=== PATIENT | male | born 1935 | race Caucasian/White ===

== ENCOUNTER 2019-08-11 19:55 | Inpatient (IN) | payer MEDICARE, MEDICAID ==
[2019-08-11 20:31] VITALS: BP 143/73
[2019-08-12] MEDS ORDERED: Magnesium Hydroxide (MOM) 30 mL UDC PO PRN (01:44)
[2019-08-12] MEDS ORDERED: Multivitamin Tab PO SCH (09:00)
--- NOTE | 2019-08-12 12:21 | Psychiatric Evaluation ---
DATE OF SERVICE: 08/12/2019 JUSTIFICATION FOR HOSPITALIZATION: Agitation, irritated, striking out at staff. HISTORY OF PRESENT ILLNESS: An 83-year-old male apparently aggressive, agitated, banging on tables, poor sleep, irritated, striking out at nursing staff, essentially refusing to speak with me this morning, but per staff, he has been yelling and throwing himself off his chair, throwing his feces around the facility. PAST PSYCHIATRIC HISTORY: Unclear. Noted dementia. FAMILY HISTORY: Unclear. SOCIAL HISTORY: Apparently, the patient told staff he is from [facility], I am not sure. Per the facesheet, it looks like he is coming from a retirement in [place]. and daughter listed on the facesheet, involvement unclear. MEDICAL HISTORY: Noted. MEDICATIONS: Noted. MENTAL STATUS EXAMINATION: Stated age, sleeping, arousable, refusing to speak with me. Unable to assess further. Concerns for impulse control, agitation. DIAGNOSES: Dementia, dementia with behaviors; mood, unspecified; anxiety, unspecified; psychosis, unspecified. MEDICAL: Please see full H and P. ESTIMATED LENGTH OF STAY: 7-10 days. ASSESSMENT: The patient requiring hospitalization, aggressive, agitated, striking out, worsening behaviors, unruly. Nursing staff concerned about their own safety. The patient apparently also trying to throw himself off the chair, throwing feces, which is documented. PLAN: Treatment plan includes group as well as milieu therapy. We will make appropriate medication adjustments. CONDITIONS FOR DISCHARGE: Improved mood, improved affect, better control of any aggressive symptom. JOB# [id number]
--- NOTE | 2019-08-12 19:38 | Consultation ---
DATE OF CONSULTATION:08/12/19 INTERNAL MEDICINE CONSULTATION HISTORY OF PRESENT ILLNESS: We have 83-year-old male with dementia and Parkinson who is transferred from long-term for agitation. The patient was combative. The patient was throwing his feces at people. The patient was screaming and yelling. At this time, the patient was confused. The patient was cleared at [facility]. PAST MEDICAL HISTORY: 1. Parkinson. 2. Hypertension. 3. Dementia. MEDICATIONS: List reviewed. ALLERGIES: None. SOCIAL HISTORY: Unobtainable. REVIEW OF SYSTEMS: Difficult to obtain. PHYSICAL EXAMINATION: VITAL SIGNS: Temperature is 98.0, pulse 91, respirations 20, blood pressure 109/59, satting 98%. HEENT: Normocephalic, atraumatic head exam. NECK: Supple. CARDIOVASCULAR: Regular rate and rhythm. LUNGS: Decreased breath sounds. ABDOMEN: Soft, nontender. EXTREMITIES: No edema, cyanosis or clubbing. ASSESSMENT AND PLAN: 1. End-stage dementia with behavioral manifestations. 2. Parkinson. 3. Anxiety. 4. Acute psychosis. The patient will continue with supportive care. I reviewed the medical records from the long-term. I have discussed the care plan with nursing staff. JOB# [id number] JANEE
== END 2019-08-12 18:55 | disposition short-term general hospital (02) | DRG 884 ==
LOC: GERO 19:55
PROVIDERS: ADMIT Psychiatry & Neurology Psychiatry; ATTEND Psychiatry & Neurology Psychiatry
DX: F03.91 Unspecified dementia, unspecified severity, with behavioral disturbance (principal); F41.9 Anxiety disorder, unspecified; F29 Unspecified psychosis not due to a substance or known physiological condition; I10 Essential (primary) hypertension; G20 Parkinson's disease; Z79.899 Other long term (current) drug therapy
CPT/HCPCS: 83036-90; J7051; Z7610

== ENCOUNTER 2019-08-16 16:45 | Inpatient (IN) | payer MEDICARE, MEDICAID ==
[2019-08-16] MEDS ORDERED: Magnesium Hydroxide (MOM) 30 mL UDC PO PRN (19:33)
[2019-08-16] MEDS ORDERED: Acetaminophen 500 MG TAB PO PRN (19:33)
[2019-08-16] MEDS ORDERED: Maalox 30 mL Cup PO PRN (19:33)
[2019-08-16] MEDS: Carbidopa/Levodopa 10/100 mg Tab PO SCH (21:08)
[2019-08-17 02:36] VITALS: BP 108/62
[2019-08-17] MEDS: Carbidopa/Levodopa 10/100 mg Tab PO SCH ×3 (09:20→20:45)
[2019-08-17] MEDS: Multivitamin Tab PO SCH (09:20)
--- NOTE | 2019-08-17 12:26 | Consultation ---
DATE OF CONSULTATION: 08/17/2019 INTERNAL MEDICINE CONSULTATION HISTORY OF PRESENT ILLNESS: We have an 83-year-old male with dementia with psychosis who is transferred from [facility]. The patient was sent there to rule out for COVID-19. The patient's COVID negative x 2. The patient was transferred here for continuing care of pneumonia. No chest pain or shortness of breath. No nausea, vomiting, or abdominal pain. PAST MEDICAL HISTORY: 1. Dementia with psychosis. 2. Hypertension. MEDICATIONS: List reviewed. ALLERGIES: None. PHYSICAL EXAMINATION: VITAL SIGNS: Temperature 98.1, pulse 79, respirations 20, blood pressure 93/59, satting 96% on room air. HEENT: Normocephalic, atraumatic head exam. NECK: Supple. CARDIOVASCULAR: Regular rate and rhythm. LUNGS: Decreased breath sounds. ABDOMEN: Soft, nontender. EXTREMITIES: No edema, cyanosis or clubbing. ASSESSMENT AND PLAN: 1. Community-acquired pneumonia. 2. Dementia with psychosis. The patient will be continued on Levaquin 500 mg p.o. daily. The patient will get breathing treatments q. 6 hours. The patient's pulse ox will be monitored. We will co-manage with the psychiatrist. JOB# [id number]
[2019-08-17] MEDS: Albuterol/Ipratropium Neb 3 ML AERS HHN SCH ×2 (15:19→19:00)
--- NOTE | 2019-08-17 17:27 | Psychiatric Evaluation ---
DATE OF SERVICE: 08/17/2019 JUSTIFICATION FOR HOSPITALIZATION: Originally agitation and irritation, irritated striking out at staff. HISTORY OF PRESENT ILLNESS: An 83-year-old male came to this hospital, was sent to [place] for medical decompensation, now readmitted was apparently banging on tables, poor sleep, irritated, striking out at nursing staff. When I go see him, I am not able to get much information from him. He is refusing to talk to me, just stares at me, does not say anything. The patient noted to be continuously getting out of bed, unsteady gait, notable confusion and having hard time controlling his behaviors. He is not listening to any staff. PAST PSYCHIATRIC HISTORY: Recent admission here. FAMILY HISTORY: Noncontributory. SOCIAL HISTORY: Very hard to assess, not talking. The patient told staff he is from [facility] coming in from a [facility]. MEDICAL HISTORY: Noted. MEDICATIONS: Noted. MENTAL STATUS EXAMINATION: Stated age. Sleeping opens his eyes, does not talk to me at all. Concerns for impulse control, agitation, restlessness, confusional state. DIAGNOSES: Dementia, dementia with behaviors; mood, unspecified; anxiety, unspecified; psychosis, unspecified. MEDICAL: Please see full H and P. ESTIMATED LENGTH OF STAY: 7-10 days. ASSESSMENT: The patient requiring hospitalization. Aggressive behaviors, agitation, striking out. Poorly oriented, trying to get up, throwing himself off the chair. At some point, throwing feces, which was documented when he was here originally a few days prior. PLAN: Treatment plan includes group as well as milieu therapy. We will make appropriate medication adjustments, monitor for any overt side effects. JOB# [id number]
[2019-08-18] MEDS: Albuterol/Ipratropium Neb 3 ML AERS HHN SCH ×3 (08:08→18:58)
[2019-08-18] MEDS: Carbidopa/Levodopa 10/100 mg Tab PO SCH ×3 (09:09→20:23)
[2019-08-18] MEDS: Multivitamin Tab PO SCH (09:09)
--- NOTE | 2019-08-18 13:40 | Internal Medicine Prog Note ---
Internal Medicine Subjective - Subjective Service Date: 08/18/19 Patient seen and examined:: without staff Patient is:: asleep Internal Medicine Objective - Results Recent Labs: Laboratory Last Values POC Glucose 145 MG/DL (70 - 105) H 08/16/19 20:25 - Physical Exam Vitals and I&O: Vital Signs Temp 98.2 F 08/18/19 06:26 Pulse 77 08/18/19 09:09 Resp 18 08/18/19 06:26 BP 111/67 08/18/19 09:09 Pulse Ox 98 08/18/19 06:26 Intake & Output 08/17/19 08/18/19 08/18/19 18:59 06:59 18:59 Intake Total 900 Balance 900 Intake: Oral 900 Other: # Voids 3 # Bowel Movements 0 Stool Characteristics Soft Formed Brown Active Medications: Current Medications Acetaminophen (Tylenol) 650 mg PO Q4H PRN PRN Reason: Pain (Mild 1-3) Stop: 10/15/19 19:32 Acetaminophen (Tylenol Extra Strength) 1,000 mg PO Q6H PRN PRN Reason: Pain (Moderate 4-6) Stop: 10/15/19 19:32 Al Hydrox/Mg Hydrox/Simethicone (Maalox) 30 ml PO Q4HR PRN PRN Reason: GI DISTRESS Stop: 10/15/19 19:32 Albuterol/Ipratropium (Duoneb Neb) 3 ml HHN [id number] [facility] Stop: 10/16/19 12:59 Last Admin: 08/18/19 08:08 Dose: Not Given Bisacodyl (Dulcolax 10 Mg Supp) 10 mg RC DAILY PRN PRN Reason: constipation Stop: 10/16/19 11:23 Carbidopa/Levodopa (Sinemet 10 Mg-100 Mg) 1 tab PO TID [facility] Stop: 10/15/19 20:59 Last Admin: 08/18/19 09:09 Dose: 1 tab Donepezil HCl (Aricept) 5 mg PO DAILY [facility] Stop: 10/16/19 08:59 Last Admin: 08/18/19 09:08 Dose: 5 mg Ibuprofen (Motrin) 400 mg PO Q4H PRN PRN Reason: Pain (Severe 7-10) Stop: 10/15/19 19:32 Levofloxacin (Levaquin) 500 mg PO DAILY [facility] Stop: 10/16/19 08:59 Last Admin: 08/18/19 09:08 Dose: 500 mg Magnesium Hydroxide (Milk Of Magnesia) 30 ml PO HS PRN PRN Reason: Constipation Multivitamins/Vitamin C (Theragran) 1 tab PO DAILY REE Stop: 10/16/19 08:59 Last Admin: 08/18/19 09:09 Dose: 1 tab Propranolol HCl (Inderal) 10 mg PO BID [facility]EE Stop: 10/16/19 08:59 Last Admin: 08/18/19 09:09 Dose: 10 mg Zolpidem Tartrate (Ambien) 5 mg PO HS PRN PRN Reason: Insomnia Stop: 10/15/19 19:32 General: demented HEENT: NC/AT Neck: Supple Lungs: CTAB Cardiovascular: RRR, Normal S1, Normal S2 Abdomen: soft, non-tender Extremities: clear Internal Medicine Assmt/Plan - Assessment Assessment: 1. Community-acquired pneumonia 2. HTN 3. Dementia with psychosis - Plan Plan: continue supportive care. continue levaquin 500 mg daily patient does not appear to be in respiratory distress Nutritional Asmnt/Malnutr-PDOC - Dietary Evaluation Malnutrition Findings (Please click <Entered> for more info): Nutritional Asmnt/Malnutrition Start: 08/17/19 13: 10 Text: Status: Complete Freq: Protocol: Document 08/17/19 13:10 CANDI (Rec: 08/17/19 13:15 [email or web address] [id number]) Nutritional Asmnt/Malnutrition Patient General Information Nutritional Screening High Risk Diagnosis Dementia with psychosis Pertinent Medical Hx/Surgical Hx Dementia with psychosis, HTN Subjective Information Pt is a 83-year-old male re- admitted on 08/15 d/t psychosis after being sent to [facility] to r/o COVID-19. Pt ate 50% dinner and snacks on per Meal/Nutrition Activity Record. Recommend adding fish oil to diet regimen d/t dry skin and low BMI. Spoke with pt nurse Doug today pertaining to recommendation. Let nurse know we can get pt higher calorie snacks in the kitchen and provide softer food choices as the chopped burger seemed to be too tough for pt. Provided nurse with food options to discuss with pt at snack and meal time. Anthropometrics HT: 511 WT: 111 LB (50.45 kg) BMI: 15.50 (Underweight) GI/ Skin Integrity GI: WNL, Soft, Flat, Non- tender BM: 5/2 x1 I/O: 300/1 (+299) Skin: WNL, Intact, Dryness Dejan: 16 Diet Order: Mechanical Soft Estimated Energy Needs: ( Underweight, CBW) 2019-7641 kcals (30-35 kcals/ kg) 60-65g Pro (1.2-1.3 g/kg) 1223-8685 ml (30-25 ml/kg) Current Diet Order/ Nutrition Support Mechanical Soft Pertinent Medications Maalox (PRN), Albuterol (PRN), Dulcolax (PRN), MOM (PRN), Theragran Pertinent Labs POC Glucose (last 24 hours): 145 Nutritional Hx/Data Height 1.8 m Height (Calculated Centimeters) 180.3 Current Weight (lbs) 50.349 kg Weight (Calculated Kilograms) 50.3 Weight (Calculated Grams) 73237.8 Wayan Body Weight 172 LB (78.18 kg) % Wayan Body Weight 65 Body Mass Index (BMI) 15.5 Weight Status Emaciated GI Symptoms Last BM 52 x1 Skin Integrity/Comment: Skin: WNL, Intact, Dryness Dejan: 16 Current %PO Fair (50-74%) Estimated Nutritional Goals BEE in Kcals: Using Current wt Calories/Kcals/Kg 30-35 Kcals Calculated 7796-1401 Protein: Using Current wt Protein g/k.2-1.3 Protein Calculated 60-65 Fluid: ml 2260-1877 ml (30-25 ml/kg) Nutritional Problem 1. Problem Problem Underweight Etiology r/t consistent energy underconsumption Signs/Symptoms: aeb BMI >18.5 (15.5). Malnutrition Related to Morbid Obesity Malnutrition related to morbid obesity No Intervention/Recommendation Comments 1. Continue Mechanical Soft diet as tolerated. 2. Add Ensure Enlive TID ( completed). 3. Recommend adding fish oil to medication regimen. Expected Outcomes/Goals Expected Outcomes/Goals 1. PO intake to meet >75% of estimated nutritional needs. 2. Gradual weight gain (1.0 LB /week) trending toward IBW preferred. 3. Weekly weight checks. 4. Monitor PO intake, wt, nutrition related labs, and skin integrity. 5. F/U as high risk in 2-3 days, 5/5-5/6.
--- NOTE | 2019-08-18 19:42 | Progress Notes ---
DATE: 08/18/2019 SUBJECTIVE: An 83-year-old male, currently in the hospital, dementia, confusion. When I approached him, he asked in a language he speaks, he says he can speak Albanian, but he does not really answering any of my questions whatsoever, just asks for water. Ongoing disorientation. It seems he has a history of dementia. He has been generally calmer and not exhibiting any behavioral problems, no agitation, no escalation. Mostly withdrawn, keeps to self, fair sleep and appetite. Medications were reviewed. Labs were reviewed. Vitals were reviewed. No overt side effects. MENTAL STATUS EXAMINATION: Stated age, calm, awake, alert, but confused, somewhat impulsive, but not creating any sort of disturbance. Poor orientation. DIAGNOSIS: Dementia. PLAN: We will continue inpatient monitoring. We will attempt to contact family and it seems that the patient may be approaching his baseline, it is unclear. We will monitor for any impulse control issues or changes in mental status. [facility]# [id number]
[2019-08-19] MEDS: Albuterol/Ipratropium Neb 3 ML AERS HHN SCH ×3 (06:50→18:34)
[2019-08-19] MEDS: Multivitamin Tab PO SCH (09:31)
[2019-08-19] MEDS: Carbidopa/Levodopa 10/100 mg Tab PO SCH ×3 (09:32→20:57)
--- NOTE | 2019-08-19 12:08 | Progress Notes ---
DATE: 08/19/2019 SUBJECTIVE: The patient is currently in the hospital, calm, generally cooperative. Currently on dosing of Aricept, seems to be tolerating this medication fairly well. Calm on exam. Limited [id number] because he is pretty demented, confused. I tried to spend some time with him getting information, but it was challenging, not really able to have any intelligible conversation with him. Noted history of dementia. Staff noting calm. I spent some time with staff. The patient seems to be mostly withdrawn, keeps to self. Family involved. Medications were reviewed. Labs were reviewed. Vitals were reviewed. Blood pressure 101/52, pulse of 95. MENTAL STATUS EXAMINATION: Calm, generally cooperative, sleeping, arousable. Mood "okay." Able to make some basic needs known. No SI, no HI. No outbursts. DIAGNOSIS: Dementia. Dementia with behaviors. PLAN: We will attempt to reach out to family. Treatment plan includes group as well as milieu therapy. We will make appropriate medication adjustments. Also pending possible placement. JOB# [id number]
--- NOTE | 2019-08-19 15:40 | Internal Medicine Prog Note ---
Internal Medicine Subjective - Subjective Service Date: 08/19/19 Patient seen and examined:: without staff Patient is:: asleep Internal Medicine Objective - Results Recent Labs: Laboratory Last Values POC Glucose 145 MG/DL (70 - 105) H 08/16/19 20:25 - Physical Exam Vitals and I&O: Vital Signs Temp 98.0 F 08/19/19 14:00 Pulse 69 08/19/19 14:00 Resp 20 08/19/19 14:00 BP 102/58 08/19/19 14:00 Pulse Ox 95 08/19/19 14:00 Intake & Output 08/18/19 08/19/19 08/19/19 18:59 06:59 18:59 Intake Total 960 360 Output Total 1 Balance 960 359 Intake: Oral 960 360 Output: Urine/Stool Mix 1 Other: # Voids 3 2 # Bowel Movements 0 0 Stool Characteristics Soft Soft Soft Formed Formed Formed Brown Brown Brown Active Medications: Current Medications Acetaminophen (Tylenol) 650 mg PO Q4H PRN PRN Reason: Pain (Mild 1-3) Stop: 10/15/19 19:32 Acetaminophen (Tylenol Extra Strength) 1,000 mg PO Q6H PRN PRN Reason: Pain (Moderate 4-6) Stop: 10/15/19 19:32 Al Hydrox/Mg Hydrox/Simethicone (Maalox) 30 ml PO Q4HR PRN PRN Reason: GI DISTRESS Stop: 10/15/19 19:32 Albuterol/Ipratropium (Duoneb Neb) 3 ml HHN [id number] [facility] Stop: 10/16/19 12:59 Last Admin: 08/19/19 12:36 Dose: Not Given Bisacodyl (Dulcolax 10 Mg Supp) 10 mg RC DAILY PRN PRN Reason: constipation Stop: 10/16/19 11:23 Carbidopa/Levodopa (Sinemet 10 Mg-100 Mg) 1 tab PO TID [facility] Stop: 10/15/19 20:59 Last Admin: 08/19/19 14:47 Dose: 1 tab Donepezil HCl (Aricept) 5 mg PO DAILY [facility] Stop: 10/16/19 08:59 Last Admin: 08/19/19 09:31 Dose: 5 mg Ibuprofen (Motrin) 400 mg PO Q4H PRN PRN Reason: Pain (Severe 7-10) Stop: 10/15/19 19:32 Levofloxacin (Levaquin) 500 mg PO DAILY [facility] Stop: 10/16/19 08:59 Last Admin: 08/19/19 09:31 Dose: 500 mg Magnesium Hydroxide (Milk Of Magnesia) 30 ml PO HS PRN PRN Reason: Constipation Multivitamins/Vitamin C (Theragran) 1 tab PO DAILY [facility] Stop: 10/16/19 08:59 Last Admin: 08/19/19 09:31 Dose: 1 tab Propranolol HCl (Inderal) 10 mg PO BID [facility] Stop: 10/16/19 08:59 Last Admin: 08/19/19 09:31 Dose: 10 mg Zolpidem Tartrate (Ambien) 5 mg PO HS PRN PRN Reason: Insomnia Stop: 10/15/19 19:32 General: demented HEENT: NC/AT Neck: Supple Lungs: CTAB Cardiovascular: RRR, Normal S1, Normal S2 Abdomen: soft, non-tender Extremities: clear Internal Medicine Assmt/Plan - Assessment Assessment: 1. Community-acquired pneumonia 2. HTN 3. Dementia with psychosis - Plan Plan: continue supportive care. continue levaquin 500 mg daily d.w r.n. Nutritional Asmnt/Malnutr-PDOC - Dietary Evaluation Malnutrition Findings (Please click <Entered> for more info): Nutritional Asmnt/Malnutrition Start: 08/17/19 13: 10 Text: Status: Complete Freq: Protocol: Document 08/17/19 13:10 CANDI (Rec: 08/17/19 13:15 CANDI [email or web address] [id number]) Nutritional Asmnt/Malnutrition Patient General Information Nutritional Screening High Risk Diagnosis Dementia with psychosis Pertinent Medical Hx/Surgical Hx Dementia with psychosis, HTN Subjective Information Pt is a 83-year-old male re- admitted on 08/15 d/t psychosis after being sent to [facility] to r/o COVID-19. Pt ate 50% dinner and snacks on per Meal/Nutrition Activity Record. Recommend adding fish oil to diet regimen d/t dry skin and low BMI. Spoke with pt nurse Doug today pertaining to recommendation. Let nurse know we can get pt higher calorie snacks in the kitchen and provide softer food choices as the chopped burger seemed to be too tough for pt. Provided nurse with food options to discuss with pt at snack and meal time. Anthropometrics HT: 511 WT: 111 LB (50.45 kg) BMI: 15.50 (Underweight) GI/ Skin Integrity GI: WNL, Soft, Flat, Non- tender BM: 5/2 x1 I/O: 300/1 (+299) Skin: WNL, Intact, Dryness Dejan: 16 Diet Order: Mechanical Soft Estimated Energy Needs: ( Underweight, CBW) 8828-2446 kcals (30-35 kcals/ kg) 60-65g Pro (1.2-1.3 g/kg) 4454-9821 ml (30-25 ml/kg) Current Diet Order/ Nutrition Support Mechanical Soft Pertinent Medications Maalox (PRN), Albuterol (PRN), Dulcolax (PRN), MOM (PRN), Theragran Pertinent Labs POC Glucose (last 24 hours): 145 Nutritional Hx/Data Height 1.8 m Height (Calculated Centimeters) 180.3 Current Weight (lbs) 50.349 kg Weight (Calculated Kilograms) 50.3 Weight (Calculated Grams) 15724.8 Isabella Body Weight 172 LB (78.18 kg) % Isabella Body Weight 65 Body Mass Index (BMI) 15.5 Weight Status Emaciated GI Symptoms Last BM 5/2 x1 Skin Integrity/Comment: Skin: WNL, Intact, Dryness Dejan: 16 Current %PO Fair (50-74%) Estimated Nutritional Goals BEE in Kcals: Using Current wt Calories/Kcals/Kg 30-35 Kcals Calculated 6715-4923 Protein: Using Current wt Protein g/k.2-1.3 Protein Calculated 60-65 Fluid: ml 1187-9270 ml (30-25 ml/kg) Nutritional Problem 1. Problem Problem Underweight Etiology r/t consistent energy underconsumption Signs/Symptoms: aeb BMI >18.5 (15.5). Malnutrition Related to Morbid Obesity Malnutrition related to morbid obesity No Intervention/Recommendation Comments 1. Continue Mechanical Soft diet as tolerated. 2. Add Ensure Enlive TID ( completed). 3. Recommend adding fish oil to medication regimen. Expected Outcomes/Goals Expected Outcomes/Goals 1. PO intake to meet >75% of estimated nutritional needs. 2. Gradual weight gain (1.0 LB /week) trending toward IBW preferred. 3. Weekly weight checks. 4. Monitor PO intake, wt, nutrition related labs, and skin integrity. 5. F/U as high risk in 2-3 days, 08/18-08/19.
[2019-08-20] MEDS: Albuterol/Ipratropium Neb 3 ML AERS HHN SCH ×2 (06:40→13:30)
[2019-08-20] MEDS: Multivitamin Tab PO SCH (09:01)
[2019-08-20] MEDS: Carbidopa/Levodopa 10/100 mg Tab PO SCH ×3 (09:02→21:41)
--- NOTE | 2019-08-20 13:32 | Progress Notes ---
DATE: 08/20/2019 SUBJECTIVE: An 83-year-old male, I contacted the son yesterday with a voice message. The patient is calm, generally cooperative. Apparently, the longterm did not want him back, but he has got no days. Family wants him to go back to the longterm, going to [facility]. It is likely he will have to go back there. Family wants him to go back to his longterm. The patient mostly withdrawn, keeps to self, confused, hard to assess. MENTAL STATUS EXAMINATION: Stated age, sleeping, arousable. No agitation per staff, no behavioral disturbances, just sleeping a lot, trying to get him back to the [facility]. Currently, also pending family to call me back. PLAN: We will continue to monitor ongoing poor orientation, but generally. DICTATION ENDS HERE JOB# [id number]
--- NOTE | 2019-08-20 14:16 | Internal Medicine Prog Note ---
Internal Medicine Subjective - Subjective Service Date: 08/20/19 Patient is:: asleep Per staff patient has:: no adverse event, no episodes of fall Internal Medicine Objective - Results Recent Labs: Laboratory Last Values POC Glucose 145 MG/DL (70 - 105) H 08/16/19 20:25 - Physical Exam Vitals and I&O: Vital Signs Temp 97.6 F 08/20/19 06:22 Pulse 112 08/20/19 09:01 Resp 18 08/20/19 06:22 BP 114/78 08/20/19 09:01 Pulse Ox 99 08/20/19 06:22 Intake & Output 08/19/19 08/20/19 08/20/19 18:59 06:59 18:59 Intake Total 880 120 Balance 880 120 Intake: Oral 640 120 Other 240 Other: # Voids 3 3 # Bowel Movements 0 0 Stool Characteristics Soft Soft Formed Formed Brown Brown Active Medications: Current Medications Acetaminophen (Tylenol) 650 mg PO Q4H PRN PRN Reason: Pain (Mild 1-3) Stop: 10/15/19 19:32 Acetaminophen (Tylenol Extra Strength) 1,000 mg PO Q6H PRN PRN Reason: Pain (Moderate 4-6) Stop: 10/15/19 19:32 Al Hydrox/Mg Hydrox/Simethicone (Maalox) 30 ml PO Q4HR PRN PRN Reason: GI DISTRESS Stop: 10/15/19 19:32 Albuterol/Ipratropium (Duoneb Neb) 3 ml HHN [id number] [facility] Stop: 10/16/19 12:59 Last Admin: 08/20/19 06:40 Dose: Not Given Bisacodyl (Dulcolax 10 Mg Supp) 10 mg RC DAILY PRN PRN Reason: constipation Stop: 10/16/19 11:23 Carbidopa/Levodopa (Sinemet 10 Mg-100 Mg) 1 tab PO TID [facility] Stop: 10/15/19 20:59 Last Admin: 08/20/19 14:08 Dose: 1 tab Donepezil HCl (Aricept) 5 mg PO DAILY [facility] Stop: 10/16/19 08:59 Last Admin: 08/20/19 09:00 Dose: 5 mg Fish Oil ([place] 3) 1,000 mg PO DAILY [facility] Stop: 10/20/19 08:59 Ibuprofen (Motrin) 400 mg PO Q4H PRN PRN Reason: Pain (Severe 7-10) Stop: 10/15/19 19:32 Levofloxacin (Levaquin) 500 mg PO DAILY [facility] Stop: 10/16/19 08:59 Last Admin: 08/20/19 09:01 Dose: 500 mg Magnesium Hydroxide (Milk Of Magnesia) 30 ml PO HS PRN PRN Reason: Constipation Multivitamins/Vitamin C (Theragran) 1 tab PO DAILY [facility] Stop: 10/16/19 08:59 Last Admin: 08/20/19 09:01 Dose: 1 tab Propranolol HCl (Inderal) 10 mg PO BID [facility] Stop: 10/16/19 08:59 Last Admin: 08/20/19 09:01 Dose: 10 mg Zolpidem Tartrate (Ambien) 5 mg PO HS PRN PRN Reason: Insomnia Stop: 10/15/19 19:32 General: demented HEENT: NC/AT Neck: Supple Lungs: CTAB Cardiovascular: RRR, Normal S1, Normal S2 Abdomen: soft, non-tender Extremities: clear Internal Medicine Assmt/Plan - Assessment Assessment: 1. Community-acquired pneumonia 2. HTN 3. Dementia with psychosis - Plan Plan: continue supportive care. continue levaquin 500 mg po daily for pneumonia monitoring for respiratory distress d/w r.n. Nutritional Asmnt/Malnutr-PDOC - Dietary Evaluation Malnutrition Findings (Please click <Entered> for more info): Nutritional Asmnt/Malnutrition Start: 08/17/19 13: 10 Text: Status: Complete Freq: Protocol: Document 08/17/19 13:10 CANDI (Rec: 08/17/19 13:15 CANDI [id number]) Nutritional Asmnt/Malnutrition Patient General Information Nutritional Screening High Risk Diagnosis Dementia with psychosis Pertinent Medical Hx/Surgical Hx Dementia with psychosis, HTN Subjective Information Pt is a 83-year-old male re- admitted on 08/15 d/t psychosis after being sent to [facility] to r/o COVID-19. Pt ate 50% dinner and snacks on per Meal/Nutrition Activity Record. Recommend adding fish oil to diet regimen d/t dry skin and low BMI. Spoke with pt nurse Doug today pertaining to recommendation. Let nurse know we can get pt higher calorie snacks in the kitchen and provide softer food choices as the chopped burger seemed to be too tough for pt. Provided nurse with food options to discuss with pt at snack and meal time. Anthropometrics HT: 511 WT: 111 LB (50.45 kg) BMI: 15.50 (Underweight) GI/ Skin Integrity GI: WNL, Soft, Flat, Non- tender BM: 5/2 x1 I/O: 300/1 (+299) Skin: WNL, Intact, Dryness Dejan: 16 Diet Order: Mechanical Soft Estimated Energy Needs: ( Underweight, CBW) 6102-8046 kcals (30-35 kcals/ kg) 60-65g Pro (1.2-1.3 g/kg) 7310-3137 ml (30-25 ml/kg) Current Diet Order/ Nutrition Support Mechanical Soft Pertinent Medications Maalox (PRN), Albuterol (PRN), Dulcolax (PRN), MOM (PRN), Theragran Pertinent Labs POC Glucose (last 24 hours): 145 Nutritional Hx/Data Height 1.8 m Height (Calculated Centimeters) 180.3 Current Weight (lbs) 50.349 kg Weight (Calculated Kilograms) 50.3 Weight (Calculated Grams) 93635.8 [place] Body Weight 172 LB (78.18 kg) % [place] Body Weight 65 Body Mass Index (BMI) 15.5 Weight Status Emaciated GI Symptoms Last BM 5/2 x1 Skin Integrity/Comment: Skin: WNL, Intact, Dryness Dejan: 16 Current %PO Fair (50-74%) Estimated Nutritional Goals BEE in Kcals: Using Current wt Calories/Kcals/Kg 30-35 Kcals Calculated 0606-0174 Protein: Using Current wt Protein g/k.2-1.3 Protein Calculated 60-65 Fluid: ml 9300-9331 ml (30-25 ml/kg) Nutritional Problem 1. Problem Problem Underweight Etiology r/t consistent energy underconsumption Signs/Symptoms: aeb BMI >18.5 (15.5). Malnutrition Related to Morbid Obesity Malnutrition related to morbid obesity No Intervention/Recommendation Comments 1. Continue Mechanical Soft diet as tolerated. 2. Add Ensure Enlive TID ( completed). 3. Recommend adding fish oil to medication regimen. Expected Outcomes/Goals Expected Outcomes/Goals 1. PO intake to meet >75% of estimated nutritional needs. 2. Gradual weight gain (1.0 LB /week) trending toward IBW preferred. 3. Weekly weight checks. 4. Monitor PO intake, wt, nutrition related labs, and skin integrity. 5. F/U as high risk in 2-3 days, 08/18-08/19.
[2019-08-21] MEDS: Albuterol/Ipratropium Neb 3 ML AERS HHN SCH ×3 (06:45→18:45)
[2019-08-21] MEDS: Carbidopa/Levodopa 10/100 mg Tab PO SCH ×3 (08:48→21:30)
[2019-08-21] MEDS: Multivitamin Tab PO SCH (08:48)
[2019-08-21] MEDS: Fish Oil 1,000 MG SGL PO SCH (08:49)
--- NOTE | 2019-08-21 14:25 | Internal Medicine Prog Note ---
Internal Medicine Subjective - Subjective Service Date: 08/21/19 Patient is:: asleep Per staff patient has:: no adverse event, no episodes of fall Internal Medicine Objective - Results Recent Labs: Laboratory Last Values POC Glucose 145 MG/DL (70 - 105) H 08/16/19 20:25 - Physical Exam Vitals and I&O: Vital Signs Temp 98 F 08/21/19 06:24 Pulse 78 08/21/19 08:49 Resp 17 08/21/19 08:00 BP 98/57 08/21/19 08:49 Pulse Ox 98 08/21/19 06:24 Intake & Output 08/20/19 08/21/19 08/21/19 18:59 06:59 18:59 Intake Total 720 120 Balance 720 120 Intake: Oral 720 120 Other: # Voids 3 1 # Bowel Movements 0 0 Stool Characteristics Soft Soft Formed Formed Brown Brown Active Medications: Current Medications Acetaminophen (Tylenol) 650 mg PO Q4H PRN PRN Reason: Pain (Mild 1-3) Stop: 10/15/19 19:32 Acetaminophen (Tylenol Extra Strength) 1,000 mg PO Q6H PRN PRN Reason: Pain (Moderate 4-6) Stop: 10/15/19 19:32 Al Hydrox/Mg Hydrox/Simethicone (Maalox) 30 ml PO Q4HR PRN PRN Reason: GI DISTRESS Stop: 10/15/19 19:32 Albuterol/Ipratropium (Duoneb Neb) 3 ml HHN [id number] [facility] Stop: 10/16/19 12:59 Last Admin: 08/21/19 14:02 Dose: Not Given Bisacodyl (Dulcolax 10 Mg Supp) 10 mg RC DAILY PRN PRN Reason: constipation Stop: 10/16/19 11:23 Carbidopa/Levodopa (Sinemet 10 Mg-100 Mg) 1 tab PO TID [facility] Stop: 10/15/19 20:59 Last Admin: 08/21/19 14:16 Dose: 1 tab Donepezil HCl (Aricept) 5 mg PO DAILY [facility] Stop: 10/16/19 08:59 Last Admin: 08/21/19 08:49 Dose: 5 mg Fish Oil ([place] 3) 1,000 mg PO DAILY [facility] Stop: 10/20/19 08:59 Last Admin: 08/21/19 08:49 Dose: 1,000 mg Ibuprofen (Motrin) 400 mg PO Q4H PRN PRN Reason: Pain (Severe 7-10) Stop: 10/15/19 19:32 Levofloxacin (Levaquin) 500 mg PO DAILY [facility] Stop: 10/16/19 08:59 Last Admin: 08/21/19 08:49 Dose: 500 mg Magnesium Hydroxide (Milk Of Magnesia) 30 ml PO HS PRN PRN Reason: Constipation Multivitamins/Vitamin C (Theragran) 1 tab PO DAILY [facility] Stop: 10/16/19 08:59 Last Admin: 08/21/19 08:48 Dose: 1 tab Propranolol HCl (Inderal) 10 mg PO BID [facility] Stop: 10/16/19 08:59 Last Admin: 08/21/19 08:49 Dose: Not Given Zolpidem Tartrate (Ambien) 5 mg PO HS PRN PRN Reason: Insomnia Stop: 10/15/19 19:32 General: demented HEENT: NC/AT Neck: Supple Lungs: CTAB Cardiovascular: RRR, Normal S1, Normal S2 Abdomen: soft, non-tender Extremities: clear Internal Medicine Assmt/Plan - Assessment Assessment: 1. Community-acquired pneumonia 2. HTN 3. Dementia with psychosis - Plan Plan: continue supportive care. continue levaquin 500 mg po daily for pneumonia monitoring for respiratory distress d/w r.n. Nutritional Asmnt/Malnutr-PDOC - Dietary Evaluation Malnutrition Findings (Please click <Entered> for more info): Nutritional Asmnt/Malnutrition Start: 08/17/19 13: 10 Text: Status: Complete Freq: Protocol: Document 08/17/19 13:10 CANDI (Rec: 08/17/19 13:15 CANDI [id number]) Nutritional Asmnt/Malnutrition Patient General Information Nutritional Screening High Risk Diagnosis Dementia with psychosis Pertinent Medical Hx/Surgical Hx Dementia with psychosis, HTN Subjective Information Pt is a 83-year-old male re- admitted on 08/15 d/t psychosis after being sent to [facility] to r/o COVID-19. Pt ate 50% dinner and snacks on per Meal/Nutrition Activity Record. Recommend adding fish oil to diet regimen d/t dry skin and low BMI. Spoke with pt nurse Doug today pertaining to recommendation. Let nurse know we can get pt higher calorie snacks in the kitchen and provide softer food choices as the chopped burger seemed to be too tough for pt. Provided nurse with food options to discuss with pt at snack and meal time. Anthropometrics HT: 511 WT: 111 LB (50.45 kg) BMI: 15.50 (Underweight) GI/ Skin Integrity GI: WNL, Soft, Flat, Non- tender BM: 5/2 x1 I/O: 300/1 (+299) Skin: WNL, Intact, Dryness Dejan: 16 Diet Order: Mechanical Soft Estimated Energy Needs: ( Underweight, CBW) 0938-5723 kcals (30-35 kcals/ kg) 60-65g Pro (1.2-1.3 g/kg) 1868-5918 ml (30-25 ml/kg) Current Diet Order/ Nutrition Support Mechanical Soft Pertinent Medications Maalox (PRN), Albuterol (PRN), Dulcolax (PRN), MOM (PRN), Theragran Pertinent Labs POC Glucose (last 24 hours): 145 Nutritional Hx/Data Height 1.8 m Height (Calculated Centimeters) 180.3 Current Weight (lbs) 50.349 kg Weight (Calculated Kilograms) 50.3 Weight (Calculated Grams) 63311.8 [place] Body Weight 172 LB (78.18 kg) % [place] Body Weight 65 Body Mass Index (BMI) 15.5 Weight Status Emaciated GI Symptoms Last BM 5/2 x1 Skin Integrity/Comment: Skin: WNL, Intact, Dryness Dejan: 16 Current %PO Fair (50-74%) Estimated Nutritional Goals BEE in Kcals: Using Current wt Calories/Kcals/Kg 30-35 Kcals Calculated 6046-6105 Protein: Using Current wt Protein g/k.2-1.3 Protein Calculated 60-65 Fluid: ml 8171-6845 ml (30-25 ml/kg) Nutritional Problem 1. Problem Problem Underweight Etiology r/t consistent energy underconsumption Signs/Symptoms: aeb BMI >18.5 (15.5). Malnutrition Related to Morbid Obesity Malnutrition related to morbid obesity No Intervention/Recommendation Comments 1. Continue Mechanical Soft diet as tolerated. 2. Add Ensure Enlive TID ( completed). 3. Recommend adding fish oil to medication regimen. Expected Outcomes/Goals Expected Outcomes/Goals 1. PO intake to meet >75% of estimated nutritional needs. 2. Gradual weight gain (1.0 LB /week) trending toward IBW preferred. 3. Weekly weight checks. 4. Monitor PO intake, wt, nutrition related labs, and skin integrity. 5. F/U as high risk in 2-3 days, 08/18-08/19.
--- NOTE | 2019-08-21 20:28 | Progress Notes ---
DATE: 08/21/2019 SUBJECTIVE: Case was discussed with staff of the patient, reviewed records. The patient is an 83-year-old male who was admitted on 08/16/2019, sent from [place] because of decompensation. He is readmitted apparently having poor sleep, agitated, striking out at nursing staff. The patient is unable to give much information. Refusing to talk. The patient is unable to make safe plan for self-care. MENTAL STATUS EXAMINATION: The patient was in bed, sleepy, not willing to participate in meaningful conversation, unable to make safe plan for self-care. He has been anxious, psychotic, and demented. PLAN: The patient will be continued with his medication. The patient continues to be at risk for discharge because of dementia and confusion, agitation and he is on Aricept 5 mg at bedtime. We will continue outpatient group therapy, milieu therapy, adjust medication as needed. JOB# [id number]
[2019-08-22] MEDS: Albuterol/Ipratropium Neb 3 ML AERS HHN SCH ×3 (06:31→18:43)
[2019-08-22] MEDS: Multivitamin Tab PO SCH (08:40)
[2019-08-22] MEDS: Fish Oil 1,000 MG SGL PO SCH (08:41)
[2019-08-22] MEDS: Carbidopa/Levodopa 10/100 mg Tab PO SCH ×3 (08:41→20:56)
--- NOTE | 2019-08-22 12:31 | Internal Medicine Prog Note ---
Internal Medicine Subjective - Subjective Service Date: 08/22/19 Patient is:: awake Per staff patient has:: no adverse event, no episodes of fall Internal Medicine Objective - Results Recent Labs: Laboratory Last Values POC Glucose 145 MG/DL (70 - 105) H 08/16/19 20:25 - Physical Exam Vitals and I&O: Vital Signs Temp 97.5 F 08/22/19 06:37 Pulse 66 08/22/19 08:41 Resp 17 08/22/19 08:00 BP 102/66 08/22/19 08:41 Pulse Ox 97 08/22/19 06:37 Intake & Output 08/21/19 08/22/19 08/22/19 18:59 06:59 18:59 Intake Total 900 120 Balance 900 120 Intake: Oral 900 120 Other: # Voids 3 3 # Bowel Movements 0 Stool Characteristics Soft Soft Formed Formed Brown Brown Active Medications: Current Medications Acetaminophen (Tylenol) 650 mg PO Q4H PRN PRN Reason: Pain (Mild 1-3) Stop: 10/15/19 19:32 Acetaminophen (Tylenol Extra Strength) 1,000 mg PO Q6H PRN PRN Reason: Pain (Moderate 4-6) Stop: 10/15/19 19:32 Al Hydrox/Mg Hydrox/Simethicone (Maalox) 30 ml PO Q4HR PRN PRN Reason: GI DISTRESS Stop: 10/15/19 19:32 Albuterol/Ipratropium (Duoneb Neb) 3 ml HHN [id number] [facility] Stop: 10/16/19 12:59 Last Admin: 08/22/19 06:31 Dose: 3 ml Bisacodyl (Dulcolax 10 Mg Supp) 10 mg RC DAILY PRN PRN Reason: constipation Stop: 10/16/19 11:23 Carbidopa/Levodopa (Sinemet 10 Mg-100 Mg) 1 tab PO TID [facility] Stop: 10/15/19 20:59 Last Admin: 08/22/19 08:41 Dose: 1 tab Donepezil HCl (Aricept) 5 mg PO DAILY [facility] Stop: 10/16/19 08:59 Last Admin: 08/22/19 08:41 Dose: 5 mg Fish Oil ([place] 3) 1,000 mg PO DAILY [facility] Stop: 10/20/19 08:59 Last Admin: 08/22/19 08:41 Dose: 1,000 mg Ibuprofen (Motrin) 400 mg PO Q4H PRN PRN Reason: Pain (Severe 7-10) Stop: 10/15/19 19:32 Levofloxacin (Levaquin) 500 mg PO DAILY [facility] Stop: 10/16/19 08:59 Last Admin: 08/22/19 08:41 Dose: 500 mg Lorazepam (Ativan) 0.5 mg PO Q4HR PRN; Protocol PRN Reason: anxiety/agitation Stop: 10/21/19 05:17 Magnesium Hydroxide (Milk Of Magnesia) 30 ml PO HS PRN PRN Reason: Constipation Multivitamins/Vitamin C (Theragran) 1 tab PO DAILY [facility] Stop: 10/16/19 08:59 Last Admin: 08/22/19 08:40 Dose: 1 tab Olanzapine (Zyprexa) 10 mg PO BID [facility]; Protocol Stop: 10/21/19 08:59 Last Admin: 08/22/19 08:40 Dose: 10 mg Propranolol HCl (Inderal) 10 mg PO BID [facility] Stop: 10/16/19 08:59 Last Admin: 08/22/19 08:41 Dose: Not Given Trazodone HCl (Desyrel) 50 mg PO HS [facility]; Protocol Stop: 10/21/19 20:59 Zolpidem Tartrate (Ambien) 5 mg PO HS PRN PRN Reason: Insomnia Stop: 10/15/19 19:32 General: demented HEENT: NC/AT Neck: Supple Lungs: CTAB Cardiovascular: RRR, Normal S1, Normal S2 Abdomen: soft, non-tender Extremities: clear Internal Medicine Assmt/Plan - Assessment Assessment: 1. Community-acquired pneumonia 2. HTN 3. Dementia with psychosis - Plan Plan: continue supportive care. continue levaquin 500 mg po daily for pneumonia monitoring for respiratory distress d/w r.n. Nutritional Asmnt/Malnutr-PDOC - Dietary Evaluation Malnutrition Findings (Please click <Entered> for more info): Nutritional Asmnt/Malnutrition Start: 08/17/19 13: 10 Text: Status: Complete Freq: Protocol: Document 08/17/19 13:10 CANDI (Rec: 08/17/19 13:15 CANDI [id number] [id number]) Nutritional Asmnt/Malnutrition Patient General Information Nutritional Screening High Risk Diagnosis Dementia with psychosis Pertinent Medical Hx/Surgical Hx Dementia with psychosis, HTN Subjective Information Pt is a 83-year-old male re- admitted on 08/15 d/t psychosis after being sent to [facility] to r/o COVID-19. Pt ate 50% dinner and snacks on per Meal/Nutrition Activity Record. Recommend adding fish oil to diet regimen d/t dry skin and low BMI. Spoke with pt nurse Doug today pertaining to recommendation. Let nurse know we can get pt higher calorie snacks in the kitchen and provide softer food choices as the chopped burger seemed to be too tough for pt. Provided nurse with food options to discuss with pt at snack and meal time. Anthropometrics HT: 511 WT: 111 LB (50.45 kg) BMI: 15.50 (Underweight) GI/ Skin Integrity GI: WNL, Soft, Flat, Non- tender BM: 08/15 x1 I/O: 300/1 (+299) Skin: WNL, Intact, Dryness Dejan: 16 Diet Order: Mechanical Soft Estimated Energy Needs: ( Underweight, CBW) 8920-2533 kcals (30-35 kcals/ kg) 60-65g Pro (1.2-1.3 g/kg) 0112-6607 ml (30-25 ml/kg) Current Diet Order/ Nutrition Support Mechanical Soft Pertinent Medications Maalox (PRN), Albuterol (PRN), Dulcolax (PRN), MOM (PRN), Theragran Pertinent Labs POC Glucose (last 24 hours): 145 Nutritional Hx/Data Height 1.8 m Height (Calculated Centimeters) 180.3 Current Weight (lbs) 50.349 kg Weight (Calculated Kilograms) 50.3 Weight (Calculated Grams) 27424.8 [place] Body Weight 172 LB (78.18 kg) % [place] Body Weight 65 Body Mass Index (BMI) 15.5 Weight Status Emaciated GI Symptoms Last BM 08/15 x1 Skin Integrity/Comment: Skin: WNL, Intact, Dryness Dejan: 16 Current %PO Fair (50-74%) Estimated Nutritional Goals BEE in Kcals: Using Current wt Calories/Kcals/Kg 30-35 Kcals Calculated 2499-4087 Protein: Using Current wt Protein g/k.2-1.3 Protein Calculated 60-65 Fluid: ml 3368-7465 ml (30-25 ml/kg) Nutritional Problem 1. Problem Problem Underweight Etiology r/t consistent energy underconsumption Signs/Symptoms: aeb BMI >18.5 (15.5). Malnutrition Related to Morbid Obesity Malnutrition related to morbid obesity No Intervention/Recommendation Comments 1. Continue Mechanical Soft diet as tolerated. 2. Add Ensure Enlive TID ( completed). 3. Recommend adding fish oil to medication regimen. Expected Outcomes/Goals Expected Outcomes/Goals 1. PO intake to meet >75% of estimated nutritional needs. 2. Gradual weight gain (1.0 LB /week) trending toward IBW preferred. 3. Weekly weight checks. 4. Monitor PO intake, wt, nutrition related labs, and skin integrity. 5. F/U as high risk in 2-3 days, 5-08/19.
--- NOTE | 2019-08-22 20:36 | Progress Notes ---
DATE: 08/22/2019 SUBJECTIVE: Case was discussed with staff of the patient, reviewed records. Covering for Dr. Patten. The patient continues to stay in bed, poor historian. Continues to have episodes of agitation, irritability, unable to give much information, unable to make safe plan for self-care. MENTAL STATUS EXAMINATION: The patient is sleeping in bed. Unable to participate in a meaningful conversation, unable to make safe plan for self-care, has been anxious, psychotic, demented. PLAN: We will continue to adjust his medication. The patient continues to have episodes of confusion and agitation. No side effects with the medication, no sedation,no nusea, no extrapyramidal symptoms. We will continue outpatient group therapy, milieu therapy, and adjust medications as needed. JOB# [id number] JANEE
[2019-08-23] MEDS: Albuterol/Ipratropium Neb 3 ML AERS HHN SCH ×3 (06:32→18:06)
[2019-08-23] MEDS: Fish Oil 1,000 MG SGL PO SCH (09:04)
[2019-08-23] MEDS: Multivitamin Tab PO SCH (09:04)
[2019-08-23] MEDS: Carbidopa/Levodopa 10/100 mg Tab PO SCH ×3 (09:04→20:58)
--- NOTE | 2019-08-23 21:21 | Psych Progress Note ---
Psych Progress Note - Intro Date of Progress Note: 08/23/19 - Assessment Assessment: Patient interviewed, case discussed with staff, chart and records reviewed. The patient remains in bed most of the day. The patient was interviewed at bedside sleeping but arouses to his name. The patient is uncooperative. Quickly falls back asleep. Does not want a cooperate with the interview. Per staff the patient has been withdrawn depressed. Per previous notes the patient has been irritable with anger outburst. No side effects noted. No plan for self-care. - Vitals, I&O Vitals: Vital Signs - 24 hr 08/23/19 08/23/19 08/23/19 06:55 08:00 09:03 Temp 98.3 F HR 86 86 RR 19 18 BP 105/65 103/65 O2 Sat % 98 08/23/19 08/23/19 08/23/19 14:00 16:53 19:52 Temp 99.1 F 99.6 F HR 92 92 99 RR 20 18 BP 101/60 108/64 O2 Sat % 98 96 - Objective Psych General Appearance: Report: No acute distress Psych Behavior: Report: Alert, Calm Psych Speech: Report: Mumbled Psych Mood: Report: Depressed, Irritable Psych Affect: Report: Constricted Psych Cognition: Report: Confused Psych Insight: Report: Impaired Psych Judgement: Report: Impaired - Plan Plan: Continue current treatment plan, continue medications, continue to monitor behaviors. - Review of Relevant Data Review of Relevant Data: I have reviewed the following items and time dino (where applicable) has been applied. - Medications Current Medications: Current Medications Acetaminophen (Tylenol) 650 mg PO Q4H PRN PRN Reason: Pain (Mild 1-3) Stop: 10/15/19 19:32 Acetaminophen (Tylenol Extra Strength) 1,000 mg PO Q6H PRN PRN Reason: Pain (Moderate 4-6) Stop: 10/15/19 19:32 Al Hydrox/Mg Hydrox/Simethicone (Maalox) 30 ml PO Q4HR PRN PRN Reason: GI DISTRESS Stop: 10/15/19 19:32 Albuterol/Ipratropium (Duoneb Neb) 3 ml HHN [id number] [facility] Stop: 10/16/19 12:59 Last Admin: 08/23/19 18:06 Dose: 3 ml Bisacodyl (Dulcolax 10 Mg Supp) 10 mg RC DAILY PRN PRN Reason: constipation Stop: 10/16/19 11:23 Carbidopa/Levodopa (Sinemet 10 Mg-100 Mg) 1 tab PO TID [facility] Stop: 10/15/19 20:59 Last Admin: 08/23/19 20:58 Dose: 1 tab Donepezil HCl (Aricept) 5 mg PO DAILY [facility] Stop: 10/16/19 08:59 Last Admin: 08/23/19 09:04 Dose: 5 mg Fish Oil ([place] 3) 1,000 mg PO DAILY [facility] Stop: 10/20/19 08:59 Last Admin: 08/23/19 09:04 Dose: 1,000 mg Ibuprofen (Motrin) 400 mg PO Q4H PRN PRN Reason: Pain (Severe 7-10) Stop: 10/15/19 19:32 Levofloxacin (Levaquin) 500 mg PO DAILY [facility] Stop: 10/16/19 08:59 Last Admin: 08/23/19 09:04 Dose: 500 mg Lorazepam (Ativan) 0.5 mg PO Q4HR PRN; Protocol PRN Reason: anxiety/agitation Stop: 10/21/19 05:17 Magnesium Hydroxide (Milk Of Magnesia) 30 ml PO HS PRN PRN Reason: Constipation Multivitamins/Vitamin C (Theragran) 1 tab PO DAILY [facility] Stop: 10/16/19 08:59 Last Admin: 08/23/19 09:04 Dose: 1 tab Olanzapine (Zyprexa) 10 mg PO BID [facility]; Protocol Stop: 10/21/19 08:59 Last Admin: 08/23/19 16:53 Dose: 10 mg Propranolol HCl (Inderal) 10 mg PO BID [facility] Stop: 10/16/19 08:59 Last Admin: 08/23/19 16:53 Dose: Not Given Trazodone HCl (Desyrel) 50 mg PO HS [facility]; Protocol Stop: 10/21/19 20:59 Last Admin: 08/23/19 20:58 Dose: 50 mg Zolpidem Tartrate (Ambien) 5 mg PO HS PRN PRN Reason: Insomnia Stop: 10/15/19 19:32
[2019-08-24] MEDS: Albuterol/Ipratropium Neb 3 ML AERS HHN SCH ×3 (06:34→18:05)
[2019-08-24] MEDS: Carbidopa/Levodopa 10/100 mg Tab PO SCH ×3 (09:16→20:59)
[2019-08-24] MEDS: Fish Oil 1,000 MG SGL PO SCH (09:16)
[2019-08-24] MEDS: Multivitamin Tab PO SCH (09:17)
--- NOTE | 2019-08-24 19:14 | Psych Progress Note ---
Psych Progress Note - Intro Date of Progress Note: 08/24/19 - Assessment Assessment: Patient interviewed, case discussed with staff, chart and records reviewed. The patient was interviewed at bedside sleeping but arouses to his name. The patient is uncooperative. Quickly falls back asleep. Does not want a cooperate with the interview. Per staff the patient has been withdrawn depressed. Per previous notes the patient has been irritable with anger outburst. Incoherent speech. No side effects noted. No plan for self-care. - Vitals, I&O Vitals: Vital Signs - 24 hr 08/23/19 08/24/19 08/24/19 19:52 00:36 06:12 Temp 99.6 F 98.3 F 99.2 F HR 99 71 86 RR 18 18 18 BP 108/64 94/56 123/76 O2 Sat % 96 93 08/24/19 08/24/19 08/24/19 07:36 09:17 14:00 Temp 98.7 F HR 86 112 RR 18 20 BP 123/76 105/63 O2 Sat % 96 08/24/19 16:48 Temp HR 110 RR BP 105/63 O2 Sat % - Objective Psych General Appearance: Report: No acute distress Psych Behavior: Report: Alert, Calm Psych Speech: Report: Mumbled Psych Mood: Report: Depressed, Irritable Psych Affect: Report: Constricted Psych Cognition: Report: Confused Psych Insight: Report: Impaired Psych Judgement: Report: Impaired - Plan Plan: Continue current treatment plan, continue medications, continue to monitor behaviors. - Review of Relevant Data Review of Relevant Data: I have reviewed the following items and time dino (where applicable) has been applied. - Medications Current Medications: Current Medications Acetaminophen (Tylenol) 650 mg PO Q4H PRN PRN Reason: Pain (Mild 1-3) Stop: 10/15/19 19:32 Acetaminophen (Tylenol Extra Strength) 1,000 mg PO Q6H PRN PRN Reason: Pain (Moderate 4-6) Stop: 10/15/19 19:32 Al Hydrox/Mg Hydrox/Simethicone (Maalox) 30 ml PO Q4HR PRN PRN Reason: GI DISTRESS Stop: 10/15/19 19:32 Albuterol/Ipratropium (Duoneb Neb) 3 ml HHN [id number] REE Stop: 10/16/19 12:59 Last Admin: 08/24/19 18:05 Dose: 3 ml Bisacodyl (Dulcolax 10 Mg Supp) 10 mg RC DAILY PRN PRN Reason: constipation Stop: 10/16/19 11:23 Carbidopa/Levodopa (Sinemet 10 Mg-100 Mg) 1 tab PO TID REE Stop: 10/15/19 20:59 Last Admin: 08/24/19 13:30 Dose: 1 tab Donepezil HCl (Aricept) 5 mg PO DAILY [facility] Stop: 10/16/19 08:59 Last Admin: 08/24/19 09:17 Dose: 5 mg Fish Oil ([place] 3) 1,000 mg PO DAILY [facility] Stop: 10/20/19 08:59 Last Admin: 08/24/19 09:16 Dose: 1,000 mg Ibuprofen (Motrin) 400 mg PO Q4H PRN PRN Reason: Pain (Severe 7-10) Stop: 10/15/19 19:32 Levofloxacin (Levaquin) 500 mg PO DAILY [facility] Stop: 10/16/19 08:59 Last Admin: 08/24/19 09:17 Dose: 500 mg Lorazepam (Ativan) 0.5 mg PO Q4HR PRN; Protocol PRN Reason: anxiety/agitation Stop: 10/21/19 05:17 Magnesium Hydroxide (Milk Of Magnesia) 30 ml PO HS PRN PRN Reason: Constipation Multivitamins/Vitamin C (Theragran) 1 tab PO DAILY [facility] Stop: 10/16/19 08:59 Last Admin: 08/24/19 09:17 Dose: 1 tab Olanzapine (Zyprexa) 10 mg PO BID [facility]; Protocol Stop: 10/21/19 08:59 Last Admin: 08/24/19 16:47 Dose: 10 mg Propranolol HCl (Inderal) 10 mg PO BID [facility] Stop: 10/16/19 08:59 Last Admin: 08/24/19 16:48 Dose: Not Given Trazodone HCl (Desyrel) 50 mg PO HS [facility]; Protocol Stop: 10/21/19 20:59 Last Admin: 08/23/19 20:58 Dose: 50 mg
[2019-08-25] MEDS: Albuterol/Ipratropium Neb 3 ML AERS HHN SCH ×3 (06:35→18:09)
[2019-08-25] MEDS: Fish Oil 1,000 MG SGL PO SCH (09:10)
[2019-08-25] MEDS: Multivitamin Tab PO SCH (09:10)
[2019-08-25] MEDS: Carbidopa/Levodopa 10/100 mg Tab PO SCH ×3 (09:11→20:26)
--- NOTE | 2019-08-25 11:36 | Internal Medicine Prog Note ---
Internal Medicine Subjective - Subjective Service Date: 08/25/19 Patient seen and examined:: without staff Patient is:: asleep, non-verbal Per staff patient has:: no adverse event, no episodes of fall Internal Medicine Objective - Results Recent Labs: Laboratory Last Values POC Glucose 145 MG/DL (70 - 105) H 08/16/19 20:25 - Physical Exam Vitals and I&O: Vital Signs Temp 99.4 F 08/25/19 06:01 Pulse 104 08/25/19 09:10 Resp 18 08/25/19 08:00 BP 122/68 08/25/19 09:10 Pulse Ox 99 08/25/19 06:01 Intake & Output 08/24/19 08/25/19 08/25/19 18:59 06:59 18:59 Intake Total 750 300 Output Total 1 Balance 750 299 Intake: Oral 750 300 Output: Urine/Stool Mix 1 Other: # Voids 1 # Bowel Movements 0 Active Medications: Current Medications Acetaminophen (Tylenol) 650 mg PO Q4H PRN PRN Reason: Pain (Mild 1-3) Stop: 10/15/19 19:32 Acetaminophen (Tylenol Extra Strength) 1,000 mg PO Q6H PRN PRN Reason: Pain (Moderate 4-6) Stop: 10/15/19 19:32 Al Hydrox/Mg Hydrox/Simethicone (Maalox) 30 ml PO Q4HR PRN PRN Reason: GI DISTRESS Stop: 10/15/19 19:32 Albuterol/Ipratropium (Duoneb Neb) 3 ml HHN [id number] [facility] Stop: 10/16/19 12:59 Last Admin: 08/25/19 06:35 Dose: 3 ml Bisacodyl (Dulcolax 10 Mg Supp) 10 mg RC DAILY PRN PRN Reason: constipation Stop: 10/16/19 11:23 Carbidopa/Levodopa (Sinemet 10 Mg-100 Mg) 1 tab PO TID [facility] Stop: 10/15/19 20:59 Last Admin: 08/25/19 09:11 Dose: 1 tab Donepezil HCl (Aricept) 5 mg PO DAILY [facility] Stop: 10/16/19 08:59 Last Admin: 08/25/19 09:10 Dose: 5 mg Fish Oil ([place] 3) 1,000 mg PO DAILY REE Stop: 10/20/19 08:59 Last Admin: 08/25/19 09:10 Dose: 1,000 mg Ibuprofen (Motrin) 400 mg PO Q4H PRN PRN Reason: Pain (Severe 7-10) Stop: 10/15/19 19:32 Lorazepam (Ativan) 0.5 mg PO Q4HR PRN; Protocol PRN Reason: anxiety/agitation Stop: 10/21/19 05:17 Magnesium Hydroxide (Milk Of Magnesia) 30 ml PO HS PRN PRN Reason: Constipation Multivitamins/Vitamin C (Theragran) 1 tab PO DAILY [facility] Stop: 10/16/19 08:59 Last Admin: 08/25/19 09:10 Dose: 1 tab Olanzapine (Zyprexa) 10 mg PO BID [facility]; Protocol Stop: 10/21/19 08:59 Last Admin: 08/25/19 09:10 Dose: 10 mg Propranolol HCl (Inderal) 10 mg PO BID REE Stop: 10/16/19 08:59 Last Admin: 08/25/19 09:10 Dose: 10 mg Trazodone HCl (Desyrel) 50 mg PO HS REE; Protocol Stop: 10/21/19 20:59 Last Admin: 08/24/19 20:59 Dose: 50 mg General: demented HEENT: NC/AT Neck: Supple Lungs: CTAB Cardiovascular: RRR, Normal S1, Normal S2 Abdomen: soft, non-tender Extremities: clear Internal Medicine Assmt/Plan - Assessment Assessment: 1. Community-acquired pneumonia 2. HTN 3. Dementia with psychosis - Plan Plan: continue supportive care. monitoring for respiratory distress CXR to ensure resolution of pneumonia d/w r.n. Nutritional Asmnt/Malnutr-PDOC - Dietary Evaluation Malnutrition Findings (Please click <Entered> for more info): Nutritional Asmnt/Malnutrition Start: 08/17/19 13: 10 Text: Status: Complete Freq: Protocol: Document 08/17/19 13:10 CANDI (Rec: 08/17/19 13:15 CANDI [id number]) Nutritional Asmnt/Malnutrition Patient General Information Nutritional Screening High Risk Diagnosis Dementia with psychosis Pertinent Medical Hx/Surgical Hx Dementia with psychosis, HTN Subjective Information Pt is a 83-year-old male re- admitted on 08/15 d/t psychosis after being sent to [facility] to r/o COVID-19. Pt ate 50% dinner and snacks on 5 /2 per Meal/Nutrition Activity Record. Recommend adding fish oil to diet regimen d/t dry skin and low BMI. Spoke with pt nurse Doug today pertaining to recommendation. Let nurse know we can get pt higher calorie snacks in the kitchen and provide softer food choices as the chopped burger seemed to be too tough for pt. Provided nurse with food options to discuss with pt at snack and meal time. Anthropometrics HT: 511 WT: 111 LB (50.45 kg) BMI: 15.50 (Underweight) GI/ Skin Integrity GI: WNL, Soft, Flat, Non- tender BM: 5/2 x1 I/O: 300/1 (+299) Skin: WNL, Intact, Dryness Dejan: 16 Diet Order: Mechanical Soft Estimated Energy Needs: ( Underweight, CBW) 0886-6803 kcals (30-35 kcals/ kg) 60-65g Pro (1.2-1.3 g/kg) 5722-3924 ml (30-25 ml/kg) Current Diet Order/ Nutrition Support Mechanical Soft Pertinent Medications Maalox (PRN), Albuterol (PRN), Dulcolax (PRN), MOM (PRN), Theragran Pertinent Labs POC Glucose (last 24 hours): 145 Nutritional Hx/Data Height 1.8 m Height (Calculated Centimeters) 180.3 Current Weight (lbs) 50.349 kg Weight (Calculated Kilograms) 50.3 Weight (Calculated Grams) 18541.8 [place] Body Weight 172 LB (78.18 kg) % [place] Body Weight 65 Body Mass Index (BMI) 15.5 Weight Status Emaciated GI Symptoms Last BM 5/2 x1 Skin Integrity/Comment: Skin: WNL, Intact, Dryness Dejan: 16 Current %PO Fair (50-74%) Estimated Nutritional Goals BEE in Kcals: Using Current wt Calories/Kcals/Kg 30-35 Kcals Calculated 6148-6267 Protein: Using Current wt Protein g/k.2-1.3 Protein Calculated 60-65 Fluid: ml 4548-9974 ml (30-25 ml/kg) Nutritional Problem 1. Problem Problem Underweight Etiology r/t consistent energy underconsumption Signs/Symptoms: aeb BMI >18.5 (15.5). Malnutrition Related to Morbid Obesity Malnutrition related to morbid obesity No Intervention/Recommendation Comments 1. Continue Mechanical Soft diet as tolerated. 2. Add Ensure Enlive TID ( completed). 3. Recommend adding fish oil to medication regimen. Expected Outcomes/Goals Expected Outcomes/Goals 1. PO intake to meet >75% of estimated nutritional needs. 2. Gradual weight gain (1.0 LB /week) trending toward IBW preferred. 3. Weekly weight checks. 4. Monitor PO intake, wt, nutrition related labs, and skin integrity. 5. F/U as high risk in 2-3 days, 55-/6.
--- NOTE | 2019-08-25 20:56 | Progress Notes ---
DATE: 08/25/2019 Case was discussed with staff of the patient, reviewed records. The patient continues to isolate, uncooperative, unable to present a meaningful conversation or takes care for himself or make safe plan for self-care. He is compliant with the medication with no side effects, no sedation, no nausea, no extrapyramidal symptoms. We will continue outpatient group therapy, milieu therapy, and adjust medications as needed. [facility]# [id number] [facility]
--- NOTE | 2019-08-26 10:34 | Diagnostic Imaging Report ---
Portable chest x-ray History: Cough Allowing for portable technique the heart size is normal. No focal pulmonary parenchymal processes. No hilar or mediastinal abnormalities. Impression: No acute abnormalities.
== END 2019-08-25 21:30 | disposition short-term general hospital (02) | DRG 884 ==
LOC: GERO 17:00
PROVIDERS: ADMIT Psychiatry & Neurology Psychiatry; ATTEND Psychiatry & Neurology Psychiatry
DX: F03.91 Unspecified dementia, unspecified severity, with behavioral disturbance (principal); J18.9 Pneumonia, unspecified organism; F41.9 Anxiety disorder, unspecified; I10 Essential (primary) hypertension; Z79.899 Other long term (current) drug therapy; Z20.828 Contact with and (suspected) exposure to other viral communicable diseases
CPT/HCPCS: 71045-TC; 82948-90; J7051; Z7610

== ENCOUNTER 2019-08-28 17:40 | Inpatient (IN) | payer MEDICARE, MEDICAID ==
[2019-08-28 18:58] VITALS: BP 101/76
[2019-08-28] MEDS ORDERED: Maalox 30 mL Cup PO PRN (19:28)
[2019-08-28] MEDS ORDERED: Magnesium Hydroxide (MOM) 30 mL UDC PO PRN ×2 (19:28→21:45)
[2019-08-29] MEDS: Albuterol/Ipratropium Neb 3 ML AERS HHN SCH ×4 (01:20→18:13)
[2019-08-29] MEDS: Multivitamin Tab PO SCH (08:34)
[2019-08-29] MEDS: Carbidopa/Levodopa 10/100 mg Tab PO SCH ×3 (08:35→20:30)
[2019-08-29] MEDS: Fish Oil 1,000 MG SGL PO SCH (08:36)
[2019-08-29] MEDS ORDERED: Multivitamin Tab PO SCH (09:00)
--- NOTE | 2019-08-29 15:21 | Internal Medicine Prog Note ---
Internal Medicine Subjective - Subjective Service Date: 08/29/19 Patient seen and examined:: without staff Patient is:: awake, asleep Per staff patient has:: no adverse event, no episodes of fall Internal Medicine Objective - Physical Exam Vitals and I&O: Vital Signs Temp 97.8 F 08/29/19 14:00 Pulse 89 08/29/19 14:00 Resp 20 08/29/19 14:00 BP 108/74 08/29/19 14:00 Pulse Ox 98 08/29/19 14:00 Intake & Output 08/28/19 08/29/19 08/29/19 18:59 06:59 18:59 Intake Total 120 Balance 120 Weight (lbs) 46.448 kg Intake: Oral 120 Other: # Voids 2 # Bowel Movements 0 Stool Characteristics Soft Brown Weight Source Bedscale Active Medications: Current Medications Acetaminophen (Tylenol) 650 mg PO Q4H PRN PRN Reason: Pain (Mild 1-3) Stop: 10/27/19 19:27 Acetaminophen (Tylenol) 650 mg PO Q4H PRN PRN Reason: Temperature above 101 Stop: 10/27/19 21:41 Al Hydrox/Mg Hydrox/Simethicone (Maalox) 30 ml PO Q4HR PRN PRN Reason: GI DISTRESS Stop: 10/27/19 19:27 Albuterol/Ipratropium (Duoneb Neb) 3 ml HHN Q6HRT [facility] Stop: 10/28/19 00:59 Last Admin: 08/29/19 12:28 Dose: 3 ml Bisacodyl (Dulcolax 10 Mg Supp) 10 mg RC DAILY PRN PRN Reason: constipation Stop: 10/27/19 21:41 Carbidopa/Levodopa (Sinemet 10 Mg-100 Mg) 1 tab PO TID [facility] Stop: 10/28/19 08:59 Last Admin: 08/29/19 08:35 Dose: 1 tab Donepezil HCl (Aricept) 5 mg PO DAILY [facility] Stop: 10/28/19 08:59 Last Admin: 08/29/19 08:35 Dose: 5 mg Fish Oil ([place] 3) 1,000 mg PO DAILY [facility] Stop: 10/28/19 08:59 Last Admin: 08/29/19 08:36 Dose: 1,000 mg Ibuprofen (Motrin) 400 mg PO Q4H PRN PRN Reason: Pain (Severe 7-10) Stop: 10/27/19 19:27 Lorazepam (Ativan) 0.5 mg PO Q4HR PRN; Protocol PRN Reason: Anxiety Stop: 09/27/19 19:27 Magnesium Hydroxide (Milk Of Magnesia) 30 ml PO HS PRN PRN Reason: Constipation Multivitamins/Vitamin C (Theragran) 1 tab PO DAILY [facility] Stop: 10/28/19 08:59 Last Admin: 08/29/19 08:34 Dose: 1 tab Propranolol HCl (Inderal) 10 mg PO BID [facility] Stop: 10/28/19 08:59 Last Admin: 08/29/19 08:36 Dose: Not Given General: weak HEENT: NC/AT, PERRLA Neck: Supple Lungs: CTAB Cardiovascular: RRR, Normal S1, Normal S2 Abdomen: soft, non-tender Extremities: clear Internal Medicine Assmt/Plan - Assessment Assessment: 1. Pneumonia 2. Dementia with psychosis 3. Agitation - Plan Plan: continue supportive care continue levaquin 500 mg po daily
--- NOTE | 2019-08-29 16:18 | Psychiatric Evaluation ---
DATE OF SERVICE: 08/29/2019 HISTORY OF PRESENT ILLNESS: An 83-year-old male, currently back in the hospital, history of aggression, agitation, yelling, screaming, currently on a hold, grave disability. On [id number], the patient quiet, mostly withdrawn, keeps to self, poor historian, very confused, was here before, medically decline sent to an outside hospital, AO to name only, forgetful, does not know where he is or what is going on, does not know the month or the year. I attempted to call the family last time he was here. The patient has no idea where he is. PAST PSYCHIATRIC HISTORY: Admissions in the past. FAMILY HISTORY: Unclear. SOCIAL HISTORY: Coming from a [facility]. MEDICATIONS: Noted. MENTAL STATUS EXAMINATION: Stated age. Fair eye contact. Sleeping, but arousable, AO to name only. No overt SI or HI, disorganized, confused, disoriented, poor insight, poor impulse control. DIAGNOSES: Dementia; mood, unspecified; anxiety, unspecified; psychosis, unspecified. MEDICAL: Please see full H and P. ESTIMATED LENGTH OF STAY: 5-7 days. ASSESSMENT: The patient requiring hospitalization, impulsive, unpredictable, history of agitation. We will readjust medications. TREATMENT PLAN: Includes group as well as milieu therapy. CONDITIONS FOR DISCHARGE: Improved mood, improved affect, better control of mood symptoms. JOB# [id number]
[2019-08-30] MEDS: Albuterol/Ipratropium Neb 3 ML AERS HHN SCH ×3 (07:46→19:30)
[2019-08-30] MEDS: Fish Oil 1,000 MG SGL PO SCH (08:48)
[2019-08-30] MEDS: Carbidopa/Levodopa 10/100 mg Tab PO SCH ×3 (08:48→21:47)
[2019-08-30] MEDS: Multivitamin Tab PO SCH (08:50)
--- NOTE | 2019-08-30 11:18 | Progress Notes ---
DATE: 08/30/2019 SUBJECTIVE: An 83-year-old male back in the hospital, history of aggression and agitation, calm yesterday, pretty calm today, mostly withdrawn, keeps to self, quiet. No behavioral disturbances, resting in bed quietly, has been more medically unstable while he has been here. [facility] does not want the patient back, ombudsman involved. Fair sleep and appetite. Medications were reviewed. Labs were reviewed. Vitals were reviewed. Blood pressure 108/74, pulse of 89. ASSESSMENT: An 83-year-old male, dementia, seems to be calmer, no behavioral outbursts as of late, but remains somewhat impulsive, unpredictable. PLAN: We will continue to monitor. We are actively trying to work on placement. JOB# [id number]
[2019-08-31] MEDS: Albuterol/Ipratropium Neb 3 ML AERS HHN SCH ×4 (01:30→18:10)
[2019-08-31] MEDS: Multivitamin Tab PO SCH (08:56)
[2019-08-31] MEDS: Carbidopa/Levodopa 10/100 mg Tab PO SCH ×3 (08:56→21:20)
[2019-08-31] MEDS: Fish Oil 1,000 MG SGL PO SCH (08:57)
--- NOTE | 2019-08-31 11:51 | Progress Notes ---
DATE: 08/31/2019 SUBJECTIVE: An 83-year-old male, currently in the hospital, sleeping, arousable, speaks in a low voice, very confused, able to follow some commands. No agitation, no escalation of behaviors, seems to be at his baseline. He is not particularly aggressive. He does yell at times, possibly out of frustration and discomfort. Medications reviewed. Labs reviewed. Vitals reviewed. Blood pressure 110/65, pulse of 94. ASSESSMENT: An 83-year-old male, some yelling episodes, very confused, oriented, but no agitation, not trying to hit anybody. We will continue inpatient monitoring. Discussed at length with staff. JOB# [id number]
[2019-09-01] MEDS: Albuterol/Ipratropium Neb 3 ML AERS HHN SCH ×4 (01:10→18:04)
[2019-09-01] MEDS: Carbidopa/Levodopa 10/100 mg Tab PO SCH ×3 (08:42→22:01)
[2019-09-01] MEDS: Fish Oil 1,000 MG SGL PO SCH (08:42)
[2019-09-01] MEDS: Multivitamin Tab PO SCH (08:42)
--- NOTE | 2019-09-01 12:57 | Progress Notes ---
DATE: 09/01/2019 SUBJECTIVE: An 83-year-old male, currently in the hospital, still disoriented, is sometimes able to make his needs known, very confused, mostly withdrawn, keeps to self, needing high level of prompting, redirection. No overt agitation, no escalation of behaviors, sometimes yells, hard to understand what he is saying, follows simple commands. Medications were reviewed. Labs reviewed. Vitals reviewed, blood pressure 104/50, pulse ranges 112-114. Currently on dosing of Aricept, also Inderal b.i.d. dosing. ASSESSMENT: An 83-year-old male, seems to be calm, generally more cooperative. PLAN: We will coordinate care with social media analyst regarding a safe disposition. JOB# [id number]
--- NOTE | 2019-09-01 15:07 | Internal Medicine Prog Note ---
Internal Medicine Subjective - Subjective Service Date: 09/01/19 Patient seen and examined:: without staff Patient is:: awake, asleep Per staff patient has:: no adverse event, no episodes of fall Internal Medicine Objective - Physical Exam Vitals and I&O: Vital Signs Temp 97.7 F 09/01/19 06:41 Pulse 112 09/01/19 08:43 Resp 18 09/01/19 08:00 BP 109/66 09/01/19 08:43 Pulse Ox 94 09/01/19 06:41 Intake & Output 08/31/19 09/01/19 09/01/19 18:59 06:59 18:59 Intake Total 800 360 Balance 800 360 Intake: Oral 800 360 Other: # Voids 3 1 # Bowel Movements 0 Active Medications: Current Medications Acetaminophen (Tylenol) 650 mg PO Q4H PRN PRN Reason: Pain (Mild 1-3) Stop: 10/27/19 19:27 Last Admin: 08/31/19 18:31 Dose: 650 mg Acetaminophen (Tylenol) 650 mg PO Q4H PRN PRN Reason: Temperature above 101 Stop: 10/27/19 21:41 Last Admin: 08/31/19 13:18 Dose: 650 mg Al Hydrox/Mg Hydrox/Simethicone (Maalox) 30 ml PO Q4HR PRN PRN Reason: GI DISTRESS Stop: 10/27/19 19:27 Albuterol/Ipratropium (Duoneb Neb) 3 ml HHN Q6HRT [facility] Stop: 10/28/19 00:59 Last Admin: 09/01/19 13:37 Dose: 3 ml Bisacodyl (Dulcolax 10 Mg Supp) 10 mg RC DAILY PRN PRN Reason: constipation Stop: 10/27/19 21:41 Carbidopa/Levodopa (Sinemet 10 Mg-100 Mg) [address] [facility] Stop: 10/28/19 08:59 Last Admin: 09/01/19 13:37 Dose: 1 tab Donepezil HCl (Aricept) 5 mg PO DAILY [facility] Stop: 10/28/19 08:59 Last Admin: 09/01/19 08:42 Dose: 5 mg Fish Oil ([place] 3) 1,[address] [facility] Stop: 10/28/19 08:59 Last Admin: 05/18/20 08:42 Dose: 1,000 mg Ibuprofen (Motrin) 400 mg PO Q4H PRN PRN Reason: Pain (Severe 7-10) Stop: 10/27/19 19:27 Levofloxacin (Levaquin) [address] [facility] Stop: 10/29/19 08:59 Last Admin: 09/01/19 08:42 Dose: 500 mg Lorazepam (Ativan) 0.5 mg PO Q4HR PRN; Protocol PRN Reason: Anxiety Stop: 09/27/19 19:27 Magnesium Hydroxide (Milk Of Magnesia) 30 ml PO HS PRN PRN Reason: Constipation Multivitamins/Vitamin C (Theragran) [address] [facility] Stop: 10/28/19 08:59 Last Admin: 09/01/19 08:42 Dose: 1 tab Propranolol HCl (Inderal) [address] [facility] Stop: 10/28/19 08:59 Last Admin: 09/01/19 08:43 Dose: Not Given General: weak HEENT: NC/AT, PERRLA Neck: Supple Lungs: CTAB Cardiovascular: RRR, Normal S1, Normal S2 Abdomen: soft, non-tender Extremities: clear Neurological: no change Internal Medicine Assmt/Plan - Assessment Assessment: 1. Pneumonia 2. Dementia with psychosis 3. Agitation - Plan Plan: continue levaquin 500 mg po daily check chest x-ray d/w r.n.
[2019-09-02] MEDS: Albuterol/Ipratropium Neb 3 ML AERS HHN SCH ×4 (01:15→18:36)
[2019-09-02] MEDS: Fish Oil 1,000 MG SGL PO SCH (08:57)
[2019-09-02] MEDS: Multivitamin Tab PO SCH (08:57)
[2019-09-02] MEDS: Carbidopa/Levodopa 10/100 mg Tab PO SCH ×3 (08:57→20:59)
--- NOTE | 2019-09-02 10:31 | Diagnostic Imaging Report ---
Portable chest x-ray Time: 0 944 COMPARISON: 08/25/2019 History: Cough Allowing for portable technique the heart size is normal. No focal pulmonary parenchymal processes. No hilar or mediastinal abnormalities. Impression: No acute abnormalities.
--- NOTE | 2019-09-02 16:04 | Progress Notes ---
DATE: 09/02/2019 SUBJECTIVE: An 83-year-old male, currently in the hospital, ongoing confusion, disorientation, limited [id number], not really saying much. AO to name only. No distress. No escalation of behaviors, likely approaching his baseline. Fair sleep and appetite. Staff noting he has been redirectable. No outbursts. Medications were reviewed. Labs were reviewed. Vitals were reviewed. ASSESSMENT: An 83-year-old male with ongoing confusional state, likely approaching his baseline. PLAN: We will coordinate care with social worker clinical regarding a safe discharge plan. JOB# [id number]
[2019-09-03] MEDS: Albuterol/Ipratropium Neb 3 ML AERS HHN SCH ×5 (01:20→18:42)
[2019-09-03] MEDS: Multivitamin Tab PO SCH (09:21)
[2019-09-03] MEDS: Fish Oil 1,000 MG SGL PO SCH (09:21)
[2019-09-03] MEDS: Carbidopa/Levodopa 10/100 mg Tab PO SCH ×3 (09:21→21:26)
--- NOTE | 2019-09-03 14:25 | Internal Medicine Prog Note ---
Internal Medicine Subjective - Subjective Patient seen and examined:: without staff Patient is:: awake, asleep Per staff patient has:: no adverse event, no episodes of fall Internal Medicine Objective - Physical Exam Vitals and I&O: Vital Signs Temp 98.8 F 09/03/19 05:31 Pulse 100 09/03/19 09:18 Resp 20 09/03/19 05:31 BP 109/58 09/03/19 09:18 Pulse Ox 98 09/03/19 05:31 Intake & Output 09/02/19 09/03/19 09/03/19 18:59 06:59 18:59 Intake Total 800 240 350 Balance 800 240 350 Intake: Oral 800 240 350 Other: # Voids 4 2 # Bowel Movements 0 Active Medications: Current Medications Acetaminophen (Tylenol) 650 mg PO Q4H PRN PRN Reason: Pain (Mild 1-3) Stop: 10/27/19 19:27 Last Admin: 08/31/19 18:31 Dose: 650 mg Acetaminophen (Tylenol) 650 mg PO Q4H PRN PRN Reason: Temperature above 101 Stop: 10/27/19 21:41 Last Admin: 08/31/19 13:18 Dose: 650 mg Al Hydrox/Mg Hydrox/Simethicone (Maalox) 30 ml PO Q4HR PRN PRN Reason: GI DISTRESS Stop: 10/27/19 19:27 Albuterol/Ipratropium (Duoneb Neb) 3 ml HHN Q6HRT [facility] Stop: 10/28/19 00:59 Last Admin: 09/03/19 06:43 Dose: 3 ml Bisacodyl (Dulcolax 10 Mg Supp) 10 mg RC DAILY PRN PRN Reason: constipation Stop: 10/27/19 21:41 Carbidopa/Levodopa (Sinemet 10 Mg-100 Mg) 1 tab PO TID [facility] Stop: 10/28/19 08:59 Last Admin: 09/03/19 09:21 Dose: 1 tab Donepezil HCl (Aricept) 5 mg PO DAILY [facility] Stop: 10/28/19 08:59 Last Admin: 09/03/19 09:21 Dose: 5 mg Fish Oil ([place] 3) 1,000 mg PO DAILY [facility] Stop: 10/28/19 08:59 Last Admin: 09/03/19 09:21 Dose: 1,000 mg Ibuprofen (Motrin) 400 mg PO Q4H PRN PRN Reason: Pain (Severe 7-10) Stop: 10/27/19 19:27 Levofloxacin (Levaquin) 500 mg PO DAILY [facility] Stop: 10/29/19 08:59 Last Admin: 09/03/19 09:21 Dose: 500 mg Lorazepam (Ativan) 0.5 mg PO Q4HR PRN; Protocol PRN Reason: Anxiety Stop: 09/27/19 19:27 Multivitamins/Vitamin C (Theragran) 1 tab PO DAILY [facility] Stop: 10/28/19 08:59 Last Admin: 09/03/19 09:21 Dose: 1 tab Propranolol HCl (Inderal) 10 mg PO BID [facility] Stop: 10/28/19 08:59 Last Admin: 09/03/19 09:18 Dose: Not Given General: weak HEENT: NC/AT, PERRLA Neck: Supple Lungs: CTAB Cardiovascular: RRR, Normal S1, Normal S2 Abdomen: soft, non-tender Extremities: clear Neurological: no change Internal Medicine Assmt/Plan - Assessment Assessment: 1. Pneumonia 2. Dementia with psychosis 3. Agitation - Plan Plan: continue levaquin 500 mg po daily continue duonebs q 4 hours prn d/w r.n.
--- NOTE | 2019-09-03 16:36 | Progress Notes ---
DATE: 09/03/2019 SUBJECTIVE: An 83-year-old male, currently in the hospital, ongoing confusion and disorientation, sleeping, arousable, does not say much on exam. Nursing notes indicate he has been sleeping very well. No agitation. No escalation of behaviors. No distress. Sometimes yells, but few and far between, redirectable. Medications were reviewed. Labs were reviewed. Vitals reviewed, blood pressure 120/66, pulse ranges from 84-102. ASSESSMENT: An 83-year-old male, calm, likely at his baseline, pending a safe disposition. JOB# [id number]
[2019-09-04] MEDS: Albuterol/Ipratropium Neb 3 ML AERS HHN SCH ×4 (01:12→18:13)
[2019-09-04] MEDS: Carbidopa/Levodopa 10/100 mg Tab PO SCH ×3 (08:35→21:32)
[2019-09-04] MEDS: Fish Oil 1,000 MG SGL PO SCH (08:35)
[2019-09-04] MEDS: Multivitamin Tab PO SCH (08:36)
--- NOTE | 2019-09-04 15:32 | Internal Medicine Prog Note ---
Internal Medicine Subjective - Subjective Service Date: 09/04/19 Patient seen and examined:: without staff Patient is:: awake, asleep Per staff patient has:: no adverse event, no episodes of fall Internal Medicine Objective - Physical Exam Vitals and I&O: Vital Signs Temp 98.6 F 09/04/19 14:00 Pulse 92 09/04/19 14:00 Resp 20 09/04/19 15:00 BP 103/61 09/04/19 14:00 Pulse Ox 96 09/04/19 14:00 Intake & Output 09/03/19 09/04/19 09/04/19 18:59 06:59 18:59 Intake Total 750 Balance 750 Intake: Oral 750 Other: # Voids 2 3 Active Medications: Current Medications Acetaminophen (Tylenol) 650 mg PO Q4H PRN PRN Reason: Pain (Mild 1-3) Stop: 10/27/19 19:27 Last Admin: 08/31/19 18:31 Dose: 650 mg Acetaminophen (Tylenol) 650 mg PO Q4H PRN PRN Reason: Temperature above 101 Stop: 10/27/19 21:41 Last Admin: 08/31/19 13:18 Dose: 650 mg Al Hydrox/Mg Hydrox/Simethicone (Maalox) 30 ml PO Q4HR PRN PRN Reason: GI DISTRESS Stop: 10/27/19 19:27 Albuterol/Ipratropium (Duoneb Neb) 3 ml HHN Q6HRT [facility] Stop: 10/28/19 00:59 Last Admin: 09/04/19 13:48 Dose: 3 ml Bisacodyl (Dulcolax 10 Mg Supp) 10 mg RC DAILY PRN PRN Reason: constipation Stop: 10/27/19 21:41 Carbidopa/Levodopa (Sinemet 10 Mg-100 Mg) 1 tab PO TID [facility] Stop: 10/28/19 08:59 Last Admin: 09/04/19 14:31 Dose: 1 tab Donepezil HCl (Aricept) 5 mg PO DAILY [facility] Stop: 10/28/19 08:59 Last Admin: 09/04/19 08:35 Dose: 5 mg Fish Oil ([place] 3) 1,000 mg PO DAILY [facility] Stop: 10/28/19 08:59 Last Admin: 09/04/19 08:35 Dose: 1,000 mg Ibuprofen (Motrin) 400 mg PO Q4H PRN PRN Reason: Pain (Severe 7-10) Stop: 10/27/19 19:27 Levofloxacin (Levaquin) 500 mg PO DAILY [facility] Stop: 10/29/19 08:59 Last Admin: 09/04/19 08:35 Dose: 500 mg Lorazepam (Ativan) 0.5 mg PO Q4HR PRN; Protocol PRN Reason: Anxiety Stop: 09/27/19 19:27 Multivitamins/Vitamin C (Theragran) 1 tab PO DAILY [facility] Stop: 10/28/19 08:59 Last Admin: 09/04/19 08:36 Dose: 1 tab Propranolol HCl (Inderal) 10 mg PO BID [facility] Stop: 10/28/19 08:59 Last Admin: 09/04/19 08:34 Dose: Not Given General: weak HEENT: NC/AT, PERRLA Neck: Supple Lungs: CTAB Cardiovascular: RRR, Normal S1, Normal S2 Abdomen: soft, non-tender Extremities: clear Neurological: no change Internal Medicine Assmt/Plan - Assessment Assessment: 1. Pneumonia 2. Dementia with psychosis 3. Agitation - Plan Plan: continue levaquin 500 mg po daily continue duonebs q 4 hours prn stop levaquin after completing 7 day course d/w r.n.
--- NOTE | 2019-09-04 16:54 | Progress Notes ---
DATE: 09/04/2019 SUBJECTIVE: The patient is currently in the hospital. At this point, we are trying to discharge the patient to a lower level of care. He is at his baseline, just confused, disoriented, just mostly sleeping a lot of the day. He is not aggressive or particularly agitated. He is not exhibiting any overt behavioral disturbances. Community Health Nurse Staff is heavily involved with the family ombudsman and also referrals to different fpc. Medications were reviewed. Labs reviewed. Vitals reviewed, blood pressure 110/70, pulse of 95. ASSESSMENT: An 83-year-old male at his baseline demented, confused, but not agitated. PLAN: We will continue inpatient monitoring. Community Health Nurse Staff is trying to work on placement. JOB# [id number]
[2019-09-05] MEDS: Albuterol/Ipratropium Neb 3 ML AERS HHN SCH ×3 (01:20→13:11)
[2019-09-05] MEDS: Carbidopa/Levodopa 10/100 mg Tab PO SCH ×2 (08:43→14:46)
[2019-09-05] MEDS: Multivitamin Tab PO SCH (08:44)
[2019-09-05] MEDS: Fish Oil 1,000 MG SGL PO SCH (08:44)
--- NOTE | 2019-09-05 10:24 | Diagnostic Imaging Report ---
Chest x-ray single view History: Fever Comparison: 09/02/2019 The heart size is normal. No hilar or mediastinal abnormalities. Mild left basilar peribronchial infiltrate. Impression: Mild left basilar infiltrate, follow-up exam is recommended.
--- NOTE | 2019-09-05 13:01 | Internal Medicine Prog Note ---
Internal Medicine Subjective - Subjective Service Date: 09/05/19 Patient seen and examined:: without staff Patient is:: awake, asleep Per staff patient has:: no adverse event, no episodes of fall Internal Medicine Objective - Physical Exam Vitals and I&O: Vital Signs Temp 97.3 F 09/05/19 06:39 Pulse 85 09/05/19 08:45 Resp 20 09/05/19 06:39 BP 126/73 09/05/19 08:45 Pulse Ox 91 09/05/19 06:39 Intake & Output 09/04/19 09/05/19 09/05/19 18:59 06:59 18:59 Intake Total 800 120 Balance 800 120 Intake: Oral 800 120 Other: # Voids 3 1 # Bowel Movements 1 0 Active Medications: Current Medications Acetaminophen (Tylenol) 650 mg PO Q4H PRN PRN Reason: Pain (Mild 1-3) Stop: 10/27/19 19:27 Last Admin: 09/04/19 19:45 Dose: 650 mg Acetaminophen (Tylenol) 650 mg PO Q4H PRN PRN Reason: Temperature above 101 Stop: 10/27/19 21:41 Last Admin: 08/31/19 13:18 Dose: 650 mg Al Hydrox/Mg Hydrox/Simethicone (Maalox) 30 ml PO Q4HR PRN PRN Reason: GI DISTRESS Stop: 10/27/19 19:27 Albuterol/Ipratropium (Duoneb Neb) 3 ml HHN Q6HRT [facility] Stop: 10/28/19 00:59 Last Admin: 09/05/19 07:15 Dose: Not Given Bisacodyl (Dulcolax 10 Mg Supp) 10 mg RC DAILY PRN PRN Reason: constipation Stop: 10/27/19 21:41 Carbidopa/Levodopa (Sinemet 10 Mg-100 Mg) [address] [facility] Stop: 10/28/19 08:59 Last Admin: 09/05/19 08:43 Dose: 1 tab Donepezil HCl (Aricept) [address] [facility] Stop: 10/28/19 08:59 Last Admin: 09/05/19 08:44 Dose: 5 mg Fish Oil ([place] 3) 1,[address] [facility] Stop: 10/28/19 08:59 Last Admin: 09/05/19 08:44 Dose: 1,000 mg Ibuprofen (Motrin) 400 mg PO Q4H PRN PRN Reason: Pain (Severe 7-10) Stop: 10/27/19 19:27 Levofloxacin (Levaquin) [address] [facility] Stop: 10/29/19 08:59 Last Admin: 09/05/19 08:44 Dose: 500 mg Lorazepam (Ativan) 0.5 mg PO Q4HR PRN; Protocol PRN Reason: Anxiety Stop: 09/27/19 19:27 Multivitamins/Vitamin C (Theragran) [address] [facility] Stop: 10/28/19 08:59 Last Admin: 09/05/19 08:44 Dose: 1 tab Propranolol HCl (Inderal) [address] [facility] Stop: 10/28/19 08:59 Last Admin: 09/05/19 08:45 Dose: 10 mg General: weak HEENT: NC/AT, PERRLA Neck: Supple Lungs: CTAB Cardiovascular: RRR, Normal S1, Normal S2 Abdomen: soft, non-tender Extremities: clear Neurological: no change Internal Medicine Assmt/Plan - Assessment Assessment: 1. Pneumonia with recent fever 2. Dementia with psychosis 3. Agitation - Plan Plan: continue levaquin 500 mg po daily continue duonebs q 4 hours prn stop levaquin after completing 7 day course cxr shows left basilar infiltrate discharge planning begun discussed with dr. holt discussed with counseling case manager
--- NOTE | 2019-09-05 16:43 | Progress Notes ---
DATE: 09/05/2019 SUBJECTIVE: The patient in the hospital, 83-year-old male, at his baseline, trying to discharge him to a lower level of care, confused, disoriented, sleeping most of the day. No agitation. He cannot take care of his basic needs, that is the main reason he is here. Family cannot take care of him. He certainly cannot take care of himself. He is too confused, disoriented, needing a higher level of nursing care. Advanced dementia. Medications were reviewed. Labs were reviewed. Vitals were reviewed. Blood pressure 109/65, pulse ranges 85 to 106. PLAN: Continue inpatient monitoring. Discussed with aids social worker. JOB# [id number]
== END 2019-09-05 15:30 | DRG 884 ==
LOC: GERO 17:40
PROVIDERS: ADMIT Psychiatry & Neurology Psychiatry; ATTEND Psychiatry & Neurology Psychiatry
DX: F03.90 Unspecified dementia, unspecified severity, without behavioral disturbance, psychotic disturbance, mood disturbance, and anxiety (principal); E43 Unspecified severe protein-calorie malnutrition; J18.9 Pneumonia, unspecified organism; Z68.1 Body mass index [BMI] 19.9 or less, adult; F41.9 Anxiety disorder, unspecified; F29 Unspecified psychosis not due to a substance or known physiological condition
CPT/HCPCS: 71045-TC; 83036-90; Z7610